=== PATIENT | male | born 1960 | race Caucasian/White ===

== ENCOUNTER 2018-09-17 15:55 | Emergency (ER) | payer MEDICAID ==
[2018-09-17] MEDS: KETOROLAC 30 MG INJ IM (16:34)
[2018-09-17] MEDS: OXYCODONE/ACETAMINOPHEN (5/325) TAB PO (16:44)
== END 2018-09-17 16:44 | disposition home or self-care (01) ==
LOC: E/R 16:44
DX: M17.11 Unilateral primary osteoarthritis, right knee (principal); R40.2252 Coma scale, best verbal response, oriented, at arrival to emergency department; R40.2362 Coma scale, best motor response, obeys commands, at arrival to emergency department; R40.2142 Coma scale, eyes open, spontaneous, at arrival to emergency department; F17.210 Nicotine dependence, cigarettes, uncomplicated
CPT/HCPCS: 96372; 99284-25

== ENCOUNTER 2018-12-16 17:55 | Emergency (ER) | payer MEDICAID ==
[2018-12-16] MEDS: HYDROCODONE/APAP (5/325) TAB PO (22:46)
[2018-12-16] MEDS: KETOROLAC 30 MG INJ IM (22:51)
== END 2018-12-17 02:07 | disposition home or self-care (01) ==
LOC: FTE 12-17 02:07
DX: M25.571 Pain in right ankle and joints of right foot (principal); M25.561 Pain in right knee; E11.9 Type 2 diabetes mellitus without complications
CPT/HCPCS: 99283-25; Z7502

== ENCOUNTER 2019-03-31 18:58 | Emergency (ER) | payer MEDICAID ==
[2019-03-31] MEDS: IBUPROFEN 600 MG TAB PO (19:28)
== END 2019-03-31 19:40 | disposition home or self-care (01) ==
LOC: E/R 18:58
DX: M25.561 Pain in right knee (principal); E11.9 Type 2 diabetes mellitus without complications; Z59.0 Homelessness
CPT/HCPCS: 82962; 99283

== ENCOUNTER 2019-04-04 23:09 | Emergency (ER) | payer MEDICAID ==
[2019-04-05] MEDS: IBUPROFEN 600 MG TAB PO
== END 2019-04-05 02:30 | disposition home or self-care (01) ==
LOC: E/R 04-05 02:30
DX: F10.920 Alcohol use, unspecified with intoxication, uncomplicated (principal); G89.29 Other chronic pain; E11.9 Type 2 diabetes mellitus without complications; M25.561 Pain in right knee
CPT/HCPCS: 99282